=== PATIENT | female | born 2000 | race Caucasian/White ===

== ENCOUNTER 2021-08-09 02:41 | Observation (INO) | payer OTHER ==
[2021-08-09] MEDS ORDERED: Lactated Ringers 1,000 ML IV ONE (03:24)
[2021-08-09] MEDS ORDERED: Ondansetron 4 MG/2 ML SDV IVPUSH ONE (03:24)
[2021-08-09 04:21] LABS: ESTIMATED GFR 129 mL/min (>60)
[2021-08-09] MEDS ORDERED: Docusate Sodium 100 MG Cap PO PRN (05:01)
[2021-08-09] MEDS ORDERED: Ondansetron 4 MG/2 ML SDV IV PRN (05:01)
[2021-08-09] MEDS ORDERED: Acetaminophen 325 MG Tab PO STA (05:05)
[2021-08-09] MEDS ORDERED: Acetaminophen 325 MG Tab PO ONE (05:31)
[2021-08-09] MEDS: Sodium Chloride 0.9% 1,000 ML IV SCH ×3 (06:14→20:42)
[2021-08-09] MEDS: cefTRIAXone 1 GM in Sodium Chloride 0.9% 100 ML IV SCH (06:14)
[2021-08-10] MEDS: Sodium Chloride 0.9% 1,000 ML IV SCH (04:45)
[2021-08-10] MEDS: cefTRIAXone 1 GM in Sodium Chloride 0.9% 100 ML IV SCH (05:43)
== END 2021-08-10 09:29 | disposition home or self-care (01) ==
LOC: JD.OBCHECK 02:41 → JD.OB 02:49 → JD.OBCHECK 05:08 → JD.OB 05:09
PROVIDERS: ADMIT Obstetrics & Gynecology; ATTEND Obstetrics & Gynecology
DX: O23.02 Infections of kidney in pregnancy, second trimester (principal); Z3A.23 23 weeks gestation of pregnancy
CPT/HCPCS: 36415; 80053; 81001; 85025; 86592; 87086; 87088; 87186; 96360; 96374; A9270; J0696; J2405; J7030; J7120; 96365; 96366; 96375; G0378

== ENCOUNTER 2021-12-07 09:48 | Inpatient (IN) | payer OTHER ==
[2021-12-07] MEDS ORDERED: Ondansetron 4 MG/2 ML SDV IVPUSH PRN (10:29)
[2021-12-07] MEDS ORDERED: Nalbuphine HCl 10 MG/ 1ML Amp IVPUSH PRN (10:29)
[2021-12-07] MEDS ORDERED: Calcium Carbonate 500 MG Tab.Chew PO PRN (10:29)
[2021-12-07] MEDS ORDERED: Sodium Chloride 0.9% 10 ML Syringe FLUSH PRN (10:29)
[2021-12-07] MEDS ORDERED: Lactated Ringers 1,000 ML IV SCH (10:30)
[2021-12-07] MEDS ORDERED: Misoprostol 200 MCG Tab PO PRN (13:02)
[2021-12-07] MEDS ORDERED: Methylergonovine 0.2 MG/1 ML Amp IM PRN (13:02)
[2021-12-07] MEDS ORDERED: Lidocaine 1% 50 ML MDV INJECT PRN (13:02)
[2021-12-07] MEDS ORDERED: Benzocaine/Menthol 20%-0.5% Spray 78 GM Cannister TOP PRN (17:37)
[2021-12-07] MEDS ORDERED: Measles, Mumps & Rubella Vaccine 0.5 ML SDV SUBCUT ONE (17:37)
[2021-12-07] MEDS ORDERED: Acetaminophen 325 MG Tab PO PRN (17:37)
[2021-12-07] MEDS ORDERED: Hydrocortisone Acetate 25 MG Supp RECTAL PRN (17:37)
[2021-12-07] MEDS ORDERED: Witch Hazel Medicated Pads 40/Jar TOP PRN (17:37)
[2021-12-07] MEDS ORDERED: Magnesium Hydroxide 400 MG/5 ML Susp 30 ML Cup PO PRN (17:37)
[2021-12-07] MEDS: Ibuprofen 600 MG Tab PO PRN (20:26)
[2021-12-07] MEDS ORDERED: Sodium Chloride 0.9% 10 ML Syringe FLUSH SCH (21:00)
[2021-12-08] MEDS: Ibuprofen 600 MG Tab PO PRN ×3 (04:56→17:48)
[2021-12-08] MEDS: Ferrous Sulfate 324 MG Tab.EC PO SCH (07:46)
[2021-12-08] MEDS: Docusate Sodium 100 MG Cap PO PRN (07:48)
[2021-12-08] MEDS: Prenatal Multivitamin with Calcium/Folic Acid/Iron Tab PO SCH ×2 (07:55→11:03)
[2021-12-09] MEDS: Docusate Sodium 100 MG Cap PO PRN (00:12)
[2021-12-09] MEDS: Ibuprofen 600 MG Tab PO PRN ×2 (00:12→07:54)
[2021-12-09] MEDS: Ferrous Sulfate 324 MG Tab.EC PO SCH (07:55)
[2021-12-09] MEDS: Prenatal Multivitamin with Calcium/Folic Acid/Iron Tab PO SCH (08:00)
== END 2021-12-09 12:08 | disposition home or self-care (01) | DRG 807 ==
LOC: JD.OBCHECK 09:48 → JD.OB 09:50 → JD.OBCHECK 10:29 → JD.OB 10:29 → OBSVTOIN 16:53 → JD.OB 16:54
PROVIDERS: ADMIT Obstetrics & Gynecology; ATTEND Obstetrics & Gynecology
PROC: 10E0XZZ Delivery of Products of Conception, External Approach (ICD-10-PCS; principal; 2021-12-07)
PROC: 10907ZC Drainage of Amniotic Fluid, Therapeutic from Products of Conception, Via Natural or Artificial Opening (ICD-10-PCS; 2021-12-07)
PROC: 0W8NXZZ Division of Female Perineum, External Approach (ICD-10-PCS; 2021-12-07)
DX: O13.4 Gestational [pregnancy-induced] hypertension without significant proteinuria, complicating childbirth (principal); Z37.0 Single live birth; O66.0 Obstructed labor due to shoulder dystocia; O99.62 Diseases of the digestive system complicating childbirth; K59.09 Other constipation; O76 Abnormality in fetal heart rate and rhythm complicating labor and delivery; Z3A.40 40 weeks gestation of pregnancy
CPT/HCPCS: 36415; 59025; 59409; 85025; 86592; A9270-GY; J2001; J2210; J2300; J7120